=== PATIENT | female | born 1975 | race Two or more races ===

== ENCOUNTER 2024-11-09 13:03 | Inpatient (IN) | payer OTHER ==
[~2024-11-09] VITALS: Ht 165.1 cm; Wt 71.7 kg
[2024-11-09] MEDS ORDERED: PERCOGESIC EXT1 EACH PO (14:46)
[2024-11-09] MEDS ORDERED: TAMS0.4C PO (14:47)
[2024-11-09] MEDS ORDERED: PHENAZOPYRIDIN100 MG PO (14:47)
[2024-11-09] MEDS ORDERED: AMOX-CLAV 875-1 EACH PO (14:47)
[2024-11-09] MEDS ORDERED: HUMIRA40 MG/0.2 SQ (14:48)
[2024-11-09] MEDS ORDERED: GLIMEPIRIDE2 MG PO (14:49)
[2024-11-09] MEDS ORDERED: LOSARTAN POTASS50 MG PO (14:49)
[2024-11-09] MEDS ORDERED: LIPITOR40 MG PO (14:50)
[2024-11-09] MEDS ORDERED: ONDANSETRON HCL 2 MG/ML VIAL IV ONE (15:45)
[2024-11-09] MEDS ORDERED: 0.9 % SODIUM CHLORIDE 500 ML IV ONE (15:45)
[2024-11-09] MEDS ORDERED: FAMOTIDINE/PF 20 MG/2 ML VIAL IV ONE (15:45)
[2024-11-09] MEDS ORDERED: CEFTRIAXONE SODIUM 2,000 MG VIAL IV ONE (15:45)
[2024-11-09] MEDS ORDERED: LACTOBACILLUS ACIDOPHILUS 1 CAP CAP PO ONE ×2 (15:45→16:08)
[2024-11-09] MEDS ORDERED: MORPHINE SULFATE 2 MG/ML SYRINGE IV ONE (16:00)
[2024-11-09] MEDS ORDERED: ONDANSETRON HCL 2 MG/ML VIAL ONE (16:07)
[2024-11-09] MEDS ORDERED: CEFTRIAXONE SODIUM 2,000 MG VIAL ONE (16:07)
[2024-11-09] MEDS ORDERED: FAMOTIDINE/PF 20 MG/2 ML VIAL ONE (16:08)
[2024-11-09 16:34] LABS: HEMATOCRIT 36.2 % (36.0-45.00); HEMOGLOBIN 11.9 g/dL (12.0-15.00); MEAN CELL VOLUME 83.5 fL (80.00-100.00); MEAN CORPUSCULAR HEMOGLOBIN 27.5 pg (27.00-32.0); MEAN CORPUSCULAR HGB CONC 32.9 g/dl (32.0-36.0); PLATELET COUNT 515 K/uL (150-450); RED BLOOD COUNT 4.34 M/uL (4.00-6.00); RED CELL DISTRIBUTION WIDTH 13.9 % (11.5-14.5)
[2024-11-09 16:38] LABS: URINE APPEARANCE Cloudy; URINE BILIRRUBIN Negative (NEGATIVE); URINE BLOOD Small; URINE COLOR Dark Yellow; URINE GLUCOSE Negative (NEGATIVE); URINE KETONE Negative (NEGATIVE); URINE LEUKOCYTE Moderate; URINE NITRATE Negative; URINE PROTEIN Trace (NEGATIVE); URINE UROBILINOGEN 0.2 E.U./dl
[2024-11-09 16:46] LABS: URINE BACTERIA 117.4 uL (0.0-1933); URINE EPITHELIAL CELLS 77.4 uL (0.0-38.8); URINE RBC 124.4 uL (0.0-20.8); URINE WBC 105.7 uL (0.0-23.2)
[2024-11-09 16:53] LABS: INR 1.06; PARTIAL THROMBOPLASTIN TIME 26.9 SECONDS (22.0-34.0); PROTHROMBIN TIME 11.5 SECONDS (9.0-11.5)
[2024-11-09 16:59] LABS: BILIRUBIN TOTAL 0.25 mg/dL (0.3-1.2); CALCIUM 9.9 mg/dL (8.5-10.1); CREATININE SERUM 1.11 mg/dL (0.55-1.02); GFR 52.46; GLOBULINA 6.1 G/DL (2.4-3.5); POTASSIUM 3.88 mEq/L (3.5-5.1); TOTAL PROTEIN 9.1 gm/dL (6.4-8.2)
[2024-11-09 16:59] LABS: URINE CAST 1.03 uL (0.0-1.40); URINE MUCUS MODERATE
[2024-11-09] MEDS ORDERED: INSULIN LISPRO 1,000 UNIT/10 ML UNITS SUBCUTANEO PRN (18:15)
[2024-11-09] MEDS ORDERED: ACETAMINOPHEN 500 MG GEL..CAP PO PRN (18:15)
[2024-11-09] MEDS ORDERED: DEXTROSE 5 % AND 0.9 % NACL 1,000 ML IV SCH (18:15)
[2024-11-09] MEDS ORDERED: KETOROLAC TROMETHAMINE 15 MG VIAL IU PRN (18:15)
[2024-11-09] MEDS ORDERED: DEXTROSE 50 % IN WATER 0.5 G/ML DISP.SYRIN IV PRN (18:15)
[2024-11-09] MEDS ORDERED: KETOROLAC TROMETHAMINE 15 MG VIAL IU ONE (18:15)
[2024-11-09] MEDS ORDERED: KETOROLAC TROMETHAMINE 30 MG VIAL ONE (21:12)
[2024-11-09 23:54] VITALS: BP 118/76; O2SAT 98
[2024-11-10] MEDS ORDERED: FAMOTIDINE/PF 20 MG in 0.9 % SODIUM CHLORIDE 8 ML IV PUSH SCH (05:00)
[2024-11-10] MEDS ORDERED: FAMOTIDINE/PF 20 MG/2 ML VIAL ONE ×2 (05:35→16:43)
[2024-11-10] MEDS ORDERED: KETOROLAC TROMETHAMINE 30 MG VIAL IV PRN (06:45)
[2024-11-10] MEDS ORDERED: MEPERIDINE HCL/PF 25 MG/ML VIAL IV PRN (07:30)
[2024-11-10] MEDS ORDERED: 0.9 % SODIUM CHLORIDE 1,000 ML IV SCH (07:30)
[2024-11-10] MEDS ORDERED: CEFTRIAXONE SODIUM 2,000 MG VIAL ONE (07:38)
[2024-11-10 08:34] VITALS: BP 142/90; O2SAT 97
[2024-11-10] MEDS ORDERED: LOSARTAN POTASSIUM 50 MG TABLET PO SCH (09:00)
[2024-11-10] MEDS ORDERED: CEFTRIAXONE SODIUM 2,000 MG in 0.9 % SODIUM CHLORIDE 100 ML IV SCH (09:00)
[2024-11-10] MEDS ORDERED: ATORVASTATIN CALCIUM 10 MG TABLET PO SCH (09:00)
[2024-11-10] MEDS ORDERED: TAMSULOSIN HCL 0.4 MG CAP PO SCH (09:00)
[2024-11-10 10:36] LABS: FECAL LEUKOCYTES POSITIVE (NEGATIVE)
[2024-11-10 15:26] VITALS: BP 110/70; O2SAT 97
[2024-11-10] MEDS ORDERED: IOVERSOL 320 MG/ML - 50 ML VIAL IV ONE (19:56)
[2024-11-10 22:45] VITALS: BP 142/82
[2024-11-11 04:58] VITALS: BP 133/80
[2024-11-11 09:37] VITALS: BP 126/81; O2SAT 96
[2024-11-11] MEDS ORDERED: FLUCONAZOLE IN NACL,ISO-OSM 200 ML IV NR (13:00)
[2024-11-11 18:47] VITALS: BP 137/79; O2SAT 97
[2024-11-12 01:30] VITALS: BP 116/71
[2024-11-12] MEDS ORDERED: FLUCONAZOLE IN NACL,ISO-OSM 200 ML IV SCH (09:00)
[2024-11-12 11:09] VITALS: BP 115/70
[2024-11-12] MEDS ORDERED: FLUCONAZOLE 200 MG TABLET PO SCH (17:00)
[2024-11-12] MEDS ORDERED: FAMOtidine 20 MG TABLET PO SCH (21:00)
== END 2024-11-12 17:49 | disposition home or self-care (01) | DRG 690 ==
LOC: ER 13:05 → SEC-K 19:31 → MEDI 11-10 10:18 → SEC-K 11-10 10:46 → MEDJ 11-10 21:13
PROVIDERS: General Practice; Urology; ADMIT Internal Medicine; ATTEND Internal Medicine
PROC: 0T7D8DZ Dilation of Urethra with Intraluminal Device, Via Natural or Artificial Opening Endoscopic (ICD-10-PCS; 2024-11-10)
PROC: BW40ZZZ Ultrasonography of Abdomen (ICD-10-PCS; 2024-11-10)
PROC: 0TJB8ZZ Inspection of Bladder, Via Natural or Artificial Opening Endoscopic (ICD-10-PCS; principal; 2024-11-10 18:00)
DX: N39.0 Urinary tract infection, site not specified (principal); N17.9 Acute kidney failure, unspecified; N20.0 Calculus of kidney; N13.30 Unspecified hydronephrosis